=== PATIENT | male | born 1945 | race Caucasian/White ===

== ENCOUNTER 2022-04-16 14:12 | Outpatient (NON) | payer MEDICARE, SELFPAY | END 2022-04-16 14:13 | disposition home or self-care (01) | LOC: ANHLAB 14:12 | PROVIDERS: Referring Provider Nurse Practitioner; Visit Provider Nurse Practitioner | DX: C44.41 Basal cell carcinoma of skin of scalp and neck (principal) | CPT/HCPCS: 88305; 88331 ==

== ENCOUNTER 2022-10-11 01:40 | Inpatient (IN) | payer MEDICARE, SELFPAY ==
[2022-10-11] VITALS (12 sets, daily range): BP systolic 139–182; BP diastolic 57–85; PULSE 69–114; RESP 20–24; TEMP 36.6–37.4; O2SAT 94–99; BMI 32.1
--- NOTE | ~2022-10-11 | XR_ITS ---
XR chest 2V 10/11/2022 09:44 Indication: Sepsis Procedure: 2 view chest Comparison: No prior studies for comparison. Findings: Heart size normal. There is atherosclerosis of the aorta. No pleural effusion or pneumothor ax. There is mild pulmonary vascular congestion. Impression: 1: Mild pulmonary vascular congestion. Reviewed, dictated and finalized at location L. Impression: 1: Mild pulmonary vascular congestion.
--- NOTE | 2022-10-11 01:38 | ADMGEN ---
This patient, Noe Rico, was admitted to IMU Room 231-01. Patient/family oriented to hospital policies and general routines including ID bracelet, bed and alarms, visiting hours, pain management, procedures, bathroom and other care routines, personal items, smoking policy, room service/diet, and visiting hours. Information on how to activate the Rapid Response Team has been discussed. Patient/Family are encouraged to report perceived risks to care and to ask questions if they do not understand what they are told or what they should do.
--- NOTE | 2022-10-11 01:42 | ECG_ITS ---
Measurements Intervals [place] Rate: 79 P: 28 MS: 159 QRS: 52 QRSD: 98 T: 37 QT: 395 QTc: 454 Interpretive Statements SINUS RHYTHM EARLY PRECORDIAL R/S TRANSITION BORDERLINE ECG NO PREVIOUS ECG AVAILABLE FOR COMPARISON Electronically Signed On 10-11-2022 7:44:34 CDT by Sixto Sanders D.O.
--- NOTE | 2022-10-11 01:42 | PM.IMHP ---
H&P: HPI History of Present Illness Date/Time: 10/11/22 01:42 Chief Complaint: chills Narrative: This is a 77-year-old male with past medical history significant for peripheral venous insufficiency, hypertension, GERD, dyslipidemia, benign prostatic hyperplasia, Degenerative joint disease, hip replacement, Colon CA. patient presents as a transfer from an outside facility where he presented with 3 days of generalized malaise, chills. 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 Patient transferred to our facility for urology consult. Patient denies any nausea, vomiting, abdominal pain, pain or burning with urination, diarrhea, cough, sputum production states that his appetite is good. Patient has been in his usual state of health up until this point. Review of Systems Review of Systems: Generalized malaise, chills. Constitutional: Constitutional: Reports chills and Reports malaise Eyes: Eyes: Denies change in vision ENT: Denies dysphagia and Denies odynophagia Cardiovascular: Cardiovascular: Denies chest pain, Reports leg edema and Denies palpitations Respiratory: Respiratory: Denies chest congestion, Denies cough, Denies excessive phlegm production and Denies dyspnea Gastrointestinal: Gastrointestinal: Denies abdominal pain, Denies dyspepsia, Denies heartburn, Denies diarrhea, Denies nausea and Denies vomiting Genitourinary: Genitourinary: Denies dysuria and Denies flank pain Musculoskeletal: Musculoskeletal: Reports myalgias Integumentary/Breasts: Skin/Breast: Denies rash Neurologic: Denies focal weakness and Denies Sensory deficit (Neuro) Psychiatric: Psychiatric: Reports no additional psychiatric complaints and Reports as per HPI Endocrine: Endocrine: Denies cold intolerance, Denies fatigue, Denies flushing, Denies heat intolerance, Denies polyphagia, Denies polydipsia and Denies palpitations Hematologic/Lymphatic: Hematologic/Lymphatic: Reports no additional hematologic/lymphatic complaints and Reports as per HPI Allergic/Immunologic: Allergic/Immunologic: Reports no additional allergic/immunologic complaints and Reports as per HPI PMFSH Family History Family History Mother Cerebrovascular accident Father Cerebrovascular accident Other DVT (deep venous thrombosis) Hypertension Social History Social History Smoking status: Never smoker Second hand tobacco smoke exposure: No Alcohol intake: never Substance use: never Lack of Transportation: No Lack of Food: Never True Current Housing: I Have Housing Concerned About Future Housing: No Difficulty Paying Gas/Electric Bills: No Difficulty Paying for Meds: No Currently Unemployed: No Education: High School Diploma/GED Difficulty w/ Childcare or Family Care: No Spiritual care concerns: Yes Meds Home Medications and Allergies Home Medications Medication Instructions Recorded Confirmed Type furosemide 40 mg tablet 40 mg PO DAILY 10/11/22 10/11/22 History lisinopril 20 mg tablet 20 mg PO DAILY 10/11/22 10/11/22 History omeprazole 20 mg capsule,delayed 20 mg PO DAILY 10/11/22 10/11/22 History release pravastatin 20 mg tablet 20 mg PO DAILY 10/11/22 10/11/22 History tamsulosin 0.4 mg capsule 0.4 mg PO DAILY 10/11/22 10/11/22 History Vital Signs Exam Narrative: patient is laying in bed Const: General: comfortable, no acute distress, well developed, alert, awake and other ( well-appearing) Nutritional Appearance: overweight Orientation/consciousness: patient oriented x3 HENMT: Head: normal to inspection, normocephalic and atraumatic Ears: hearing grossly normal bilaterally Face/Nose/Sinus: normal facial exam Face and sinus: normal facial exam Eyes: General: appearance normal, both eyes and all related structures Pupils: Equal, round and reactive pupils present EOM: EOMs intact bilaterally Neck: Neck: full ROM, no lymphaden
[2022-10-11] MEDS: DEXTROSE 5%/0.45% SOD CHL 1,000 ML 100 ML IV CONT (02:36)
[2022-10-11 03:26] LABS: Basophils Absolute Auto 0.1 K/mm3 (0.0-0.1); Basophils Percent Auto 0.4 % (0.2-1.2); Eosinophils Absolute Auto 0.1 K/mm3 (0-0.3); Eosinophils Percent Auto 0.6 % (0-4.4); Hematocrit 34.6 % (42.0-52.0); Hemoglobin 11.5 g/dL (14.0-18.0); Immature Granulocyte Absolute 0.05 K/mm3 (0.00-0.031); Immature Granulocyte Percent A 0.4 % (0-0.5); Immature Platelet Fraction Pct 5.6 % (0.9-11.2); Lymphocytes Absolute Auto 0.65 K/mm3 (0.9-3.2); Lymphocytes Percent Auto 5.1 % (18.3-44.2); Mean Corpuscular HGB Conc 33.2 g/dl (32-36); Mean Corpuscular Hemoglobin 31.2 pg (26-34); Mean Corpuscular Volume 93.8 fl (80-100); Mean Platelet Volume 10.6 fl (7.4-10.4); Monocytes Absolute Auto 1.1 K/mm3 (0.1-0.6); Monocytes Percent Auto 8.3 % (2.6-8.5); Neutrophils Absolute Auto 10.8 K/mm3 (1.3-6.7); Neutrophils Percent Auto 85.2 % (45.5-73.1); Platelet Count Result 147 k/mm3 (150-375); Red Blood Count 3.69 M/mm3 (4.6-6.20); Red Cell Distribution Width 13.2 % (11.5-14.5); White Blood Count 12.7 K/mm3 (4.5-10.0)
[2022-10-11 03:34] LABS: INR 1.2; Prothrombin Time 16.2 Seconds (11.1-14.7)
[2022-10-11 03:35] LABS: Partial Thromboplastin Time 35.7 SECONDS (22.3-36.8)
[2022-10-11 03:39] LABS: Anion Gap 5 mmol/L (8-16); Blood Urea Nitrogen 16 mg/dL (9-20); Carbon Dioxide 27 mmol/L (22-30); Chloride 104 mmol/L (98-107); Estimated CRCL calculation 70 ml/min; Estimated Glomerular Filt Rate > 60; Glucose 172 mg/dL (65-110); Magnesium 1.8 mg/dL (1.6-2.3); Potassium 3.4 mmol/L (3.4-5.0); Sodium 136 mmol/L (137-145)
--- NOTE | 2022-10-11 07:06 | WPDURCON ---
Assessment and Plan Assessment and plan (1) Emphysematous cystitis: Code(s): N30.80 - Other cystitis without hematuria Status: Acute Assessment and Plan: Ceftriaxone and catheter drainage pending urine culture completion. Urology Consult Note HPI Date Seen: 10/11/22 Requesting Physician: Nicola Jamison MD Primary Care Provider: UNKNOWN,DOCTOR Consult Narrative Narrative: Noe Rico is a 77 year old male, known to Dr. Nichole with a history of BPH and elevated PSA, transferred from [facility] re-presented with a 3 day history of generalized malaise, chills without documented fever. Reportedly, evaluation there revealed an infected appearing urinalysis and CT imaging demonstrated gas in lumen of the bladder and a small amount in the bladder wall. He was transferred here for definitive care. I pass a Ervin catheter be placed to drainage. Patient has multiple cor morbidities as outlined elsewhere. His BPH is managed with daily tamsulosin. Review of Systems Review of Systems: All systems reviewed & are unremarkable except as noted in HPI and below PMFSH Family History Family History Mother Cerebrovascular accident Father Cerebrovascular accident Other DVT (deep venous thrombosis) Hypertension Social History Social History Smoking status: Never smoker Second hand tobacco smoke exposure: No Alcohol intake: never Substance use: never Lack of Transportation: No Lack of Food: Never True Current Housing: I Have Housing Concerned About Future Housing: No Difficulty Paying Gas/Electric Bills: No Difficulty Paying for Meds: No Currently Unemployed: No Education: High School Diploma/GED Difficulty w/ Childcare or Family Care: No Spiritual care concerns: Yes Meds Home Medications and Allergies Home Medications Medication Instructions Recorded Confirmed Type furosemide 40 mg tablet 40 mg PO DAILY 10/11/22 10/11/22 History lisinopril 20 mg tablet 20 mg PO DAILY 10/11/22 10/11/22 History omeprazole 20 mg capsule,delayed 20 mg PO DAILY 10/11/22 10/11/22 History release pravastatin 20 mg tablet 20 mg PO DAILY 10/11/22 10/11/22 History tamsulosin 0.4 mg capsule 0.4 mg PO DAILY 10/11/22 10/11/22 History Allergies Allergy/AdvReac Type Severity Reaction Status Date / Time No Known Allergies Allergy Verified 10/11/22 02:45 Vital Signs Vital Signs - 24 hr 10/11/22 00:57 10/11/22 01:30 10/11/22 04:00 Temperature 98.3 F Pulse Rate 82 85 76 Respiratory Rate 20 Blood Pressure 147/79 H Pulse Oximetry 99 Oxygen Delivery 10/11/22 04:00 10/11/22 04:00 Temperature 97.8 F Pulse Rate 76 69 Respiratory Rate 20 Blood Pressure 153/71 H Pulse Oximetry 98 Oxygen Delivery Room Air Exam Const: General: no acute distress Resp: Effort & Inspection: normal respiratory effort GI: Inspection: non-distended GI Palp: No abdominal tenderness and No Guarding due to palpation present (GI) Auscultation: normal bowel sounds Urinary Catheter: Urinary Catheter: patent and draining and urine clear Results Labs 10/11/22 03:18 10/11/22 03:18 Labs: Short CBC 10/11/22 Range/Units 03:18 WBC 12.7 H (4.5-10.0) K/mm3 Hgb 11.5 L (14.0-18.0) g/dL Hct 34.6 L (42.0-52.0) % Plt Count 147 L (150-375) k/mm3 BMP 10/11/22 03:18 Sodium 136 L Potassium 3.4 Chloride 104 Carbon Dioxide 27 BUN 16 Creatinine 1.10 Glucose 172 H Calcium 8.0 L
[2022-10-11] MEDS: ENOXAPARIN 40 MG/0.4 ML SYRINGE SUB-Q (09:54)
[2022-10-11] MEDS: PRAVASTATIN SODIUM 20 MG TABLET PO (09:54)
[2022-10-11] MEDS: lisinopriL 20 MG TABLET PO (09:54)
[2022-10-11] MEDS: TAMSULOSIN HCL 0.4 MG CAPSULE PO (09:54)
[2022-10-11] MEDS: PANTOPRAZOLE 40 MG TABLET PO (09:54)
[2022-10-11] MEDS: PIPERACILLN/TAZ 3.375GM/NS50ML 3.375 GM/50 ML BAG IVPB ×3 (14:10→23:34)
--- NOTE | 2022-10-11 15:30 | PM.IMPN ---
Progress Note: A&P Assessment and Plan (1) Sepsis: Code(s): A41.9 - Sepsis, unspecified organism Status: Acute Assessment and Plan: suspected Related to UTI. follow culture (2) Emphysematous cystitis: Code(s): N30.80 - Other cystitis without hematuria Status: Acute Assessment and Plan: CT scan of the abdomen pelvis done in hospital. Continue Rocephin. Follow urine culture and blood culture from [facility] (3) Hypertension: Code(s): I10 - Essential (primary) hypertension Status: Acute Assessment and Plan: restart home medication (4) Peripheral venous insufficiency: Code(s): I87.2 - Venous insufficiency (chronic) (peripheral) Status: Acute Assessment and Plan: compression stockings Subjective Date/time seen: 10/11/22 15:30 Interval history: Reviewed. Denies any complaints. Has some chills and rider. No abdominal pain no urinary symptoms. UA was positive. Records reviewed from the [facility]. Review of Systems Review of Systems: All systems reviewed & are unremarkable except as noted in HPI and below Exam Narrative: GENERAL: The patient is well developed, not in acute distress HEENT: Nonicteric sclerae, PERRLA, EOMI. Oropharynx clear. Moist mucous membranes. Conjunctivae appear well perfused. CHEST: Chest wall is nontender. HEART: Regular rate and rhythm without murmur, rubs, or gallops LUNGS: Clear to auscultation bilaterally. no respiratory distress ABDOMEN: Soft, positive bowel sounds, non-tender, no organomegaly. SKIN: No rash, no excessive bruising, petechiae, or purpura. NEUROLOGIC: Cranial nerves II-XII intact, alert and oriented x 3, no gross motor deficits EXTREMITIES: no edema, cyanosis or clubbing Objective Data Vital Signs Vital Signs: Vital Signs - 24 hr 10/11/22 00:57 10/11/22 01:30 10/11/22 04:00 Temperature 98.3 F Pulse Rate 82 85 76 Respiratory Rate 20 Blood Pressure 147/79 H Pulse Oximetry 99 Oxygen Delivery 10/11/22 04:00 10/11/22 04:00 10/11/22 08:00 Temperature 97.8 F 98.8 F Pulse Rate 76 69 95 Respiratory Rate 20 20 Blood Pressure 153/71 H 182/85 H Pulse Oximetry 98 98 Oxygen Delivery Room Air 10/11/22 08:30 10/11/22 11:53 Temperature 99 F Pulse Rate 92 Respiratory Rate 20 Blood Pressure 177/75 H 174/70 H Pulse Oximetry 94 Oxygen Delivery Intake/Output Intake/Output: Intake & Output 10/08/22 10/09/22 10/10/22 10/11/22 23:59 23:59 23:59 23:59 Output Total 1000 Balance -1000 Meds/Results Medications: Active Medications Generic Name Dose Route Start Last Admin Trade Name Freq PRN Reason Stop Dose Admin Al Hydrox/Mg Hydrox/Simethicone 30 ml 10/11/22 01:40 Mag Hydrox/Al Hydrox/Simeth 30 Ml Udc PO QID PRN Dyspepsia Enoxaparin Sodium 40 mg 10/11/22 09:00 10/11/22 09:54 Enoxaparin 40 Mg/0.4 Ml Syringe SUB-Q 40 mg DAILY PEPE Administration Dextrose/Sodium Chloride 1,000 mls @ 100 mls/hr 10/11/22 01:40 10/11/22 02:36 Dextrose 5% Sodium Chloride 0.45% IV CONT 100 mls/hr .Q10H PEPE Administration Piperacillin/Tazobactam/Dextrose 3.375 gm in 50 mls @ 100 mls/hr 10/11/22 13:30 10/11/22 14:10 Zosyn 3.375 Gm/Ns 50 Ml IVPB 100 mls/hr Q6HR PEPE Administration Lisinopril 20 mg 10/11/22 09:00 10/11/22 09:54 Lisinopril 20 Mg Tablet PO 20 mg DAILY PEPE Administration Magnesium Hydroxide 30 ml 10/11/22 01:40 Magnesium Hydroxide Susp 30 Ml Udc PO DAILY PRN Constipation Morphine Sulfate 2 mg 10/11/22 01:40 Morphine Sulfate (*Crx) 2 Mg/Ml Inj IV PUSH Q4H PRN Pain Rated 7-10 Ondansetron HCl 4 mg 10/11/22 01:40 Ondansetron Inj 4 Mg/2 Ml Vial IV PUSH Q6H PRN Nausea And Vomiting Pantoprazole Sodium 40 mg 10/11/22 09:00 10/11/22 09:54 Pantoprazole 40 Mg Tablet PO 40 mg QAM PEPE Administration Pravastatin Sodium 20 mg
[2022-10-11] MEDS: ACETAMINOPHEN 325 MG TABLET 650 MG PO (21:19)
--- NOTE | 2022-10-11 21:48 | PC.NURSE ---
This patient, Noe Rico, was transferred to [ 349] on 10/11/22 at 2148. Personal belongings sent with patient. Report given to [Maty ]. Appropriate documentation sent with patient.
[2022-10-11 21:50] LABS: Appearance Urine Clear (Clear); Bacteria Urine None Seen /hpf; Bilirubin Urine Negative (Negative); Blood Urine 2+ (Negative); Color Urine Yellow (Yellow); Glucose Urine UA Negative (Negative); Ketones Urine Negative (Negative); Leukocyte Esterase Ur 2+ LEU/UL (NEGATIVE); Nitrate Urine Negative (Negative); Protein Urine 2+ mg/dL (Negative); RBC Urine 21-50 /hpf (0-2); Squamous Epithelial Cell Urine None seen /hpf (Few); WBC Urine 51-100 /hpf (0-3)
[2022-10-11 21:54] LABS: Add Urine Microscopic? YES
--- NOTE | 2022-10-11 22:14 | PC.NURSE ---
Transferred from IMU per W/C Oriented to room .
[2022-10-12] VITALS: BP 152/66; PULSE 68; RESP 16; TEMP 36.9; O2SAT 98
[2022-10-12 05:22] VITALS: BP 163/81; PULSE 86; RESP 18; TEMP 36.6; O2SAT 98
[2022-10-12] MEDS: PIPERACILLN/TAZ 3.375GM/NS50ML 3.375 GM/50 ML BAG IVPB ×3 (05:40→18:13)
[2022-10-12 05:51] LABS: Basophils Percent Auto 0.4 % (0.2-1.2); Eosinophils Absolute Auto 0.1 K/mm3 (0-0.3); Eosinophils Percent Auto 0.6 % (0-4.4); Hematocrit 33.4 % (42.0-52.0); Hemoglobin 11.2 g/dL (14.0-18.0); Immature Granulocyte Absolute 0.05 K/mm3 (0.00-0.031); Immature Granulocyte Percent A 0.6 % (0-0.5); Immature Platelet Fraction Pct 5.7 % (0.9-11.2); Lymphocytes Absolute Auto 0.77 K/mm3 (0.9-3.2); Lymphocytes Percent Auto 9.8 % (18.3-44.2); Mean Corpuscular HGB Conc 33.5 g/dl (32-36); Mean Corpuscular Hemoglobin 31.6 pg (26-34); Mean Corpuscular Volume 94.4 fl (80-100); Mean Platelet Volume 11.2 fl (7.4-10.4); Monocytes Absolute Auto 1.4 K/mm3 (0.1-0.6); Monocytes Percent Auto 18.3 % (2.6-8.5); Neutrophils Absolute Auto 5.5 K/mm3 (1.3-6.7); Neutrophils Percent Auto 70.3 % (45.5-73.1); Platelet Count Result 121 k/mm3 (150-375); Red Blood Count 3.54 M/mm3 (4.6-6.20); Red Cell Distribution Width 13.1 % (11.5-14.5); White Blood Count 7.9 K/mm3 (4.5-10.0)
[2022-10-12 06:03] LABS: Alanine Aminotransferase 21 U/L (6-50); Albumin Level 3.1 g/dL (3.5-5.1); Alkaline Phosphatase 71 U/L (38-126); Anion Gap 6 mmol/L (8-16); Aspartate Amino Transferase 28 U/L (17-59); Bilirubin,Total 1.9 mg/dL (0.2-1.3); Blood Urea Nitrogen 16 mg/dL (9-20); Calcium 8.1 mg/dL (8.4-10.2); Carbon Dioxide 27 mmol/L (22-30); Chloride 103 mmol/L (98-107); Estimated CRCL calculation 70 ml/min; Estimated Glomerular Filt Rate > 60; Glucose 173 mg/dL (65-110); Magnesium 1.9 mg/dL (1.6-2.3); Potassium 3.4 mmol/L (3.4-5.0); Sodium 136 mmol/L (137-145)
[2022-10-12] MEDS: TAMSULOSIN HCL 0.4 MG CAPSULE PO (08:32)
[2022-10-12] MEDS: lisinopriL 20 MG TABLET PO (08:32)
[2022-10-12] MEDS: PANTOPRAZOLE 40 MG TABLET PO (08:32)
[2022-10-12] MEDS: PRAVASTATIN SODIUM 20 MG TABLET PO (08:32)
[2022-10-12] MEDS: ENOXAPARIN 40 MG/0.4 ML SYRINGE SUB-Q (08:32)
--- NOTE | 2022-10-12 08:32 | WPDUROPN2 ---
Progress Note: A&P Assessment and Plan (1) Emphysematous cystitis: Code(s): N30.80 - Other cystitis without hematuria Status: Acute Assessment and Plan: Pt. responding nicely to abx. - likely has a very mild case of cystitis. He's very anxious for discharge today so he can go to grandson's graduation tomorrow. this may be a challenge as urine culture may not be back today. I'd be comfortable with disharge this afternoon on abx. x14 days. If culture not available I suggest a quinolone (Cipro or Levaquin) for better tissue penetration Subjective Subjective Date/Time Seen: 10/12/22 08:32 Interval history: Patient responding nicely to therapy, less chills and leukocytosis improved overnight Review of Systems Cardiovascular: Cardiovascular: Denies chest pain, Denies lightheadedness, Denies palpitations and Denies dyspnea Respiratory: Respiratory: Denies dyspnea Gastrointestinal: Gastrointestinal: Denies diarrhea, Denies nausea and Denies vomiting Genitourinary: Genitourinary: Denies hematuria and Denies dysuria Endocrine: Endocrine: Denies palpitations Objective Data Vital Signs Vital Signs: Vital Signs - 24 hr 10/11/22 11:53 10/11/22 12:00 10/11/22 16:00 Temperature 99 F Pulse Rate 92 Respiratory Rate 20 Blood Pressure 174/70 H Pulse Oximetry 94 Oxygen Delivery Room Air Room Air 10/11/22 12:00 10/11/22 16:00 10/11/22 10:00 Temperature Pulse Rate 93 114 H 105 H Respiratory Rate Blood Pressure Pulse Oximetry Oxygen Delivery 10/11/22 14:00 10/11/22 16:00 10/11/22 18:00 Temperature 99.4 F Pulse Rate 99 98 91 Respiratory Rate 24 H Blood Pressure 139/62 Pulse Oximetry 96 Oxygen Delivery 10/11/22 20:00 10/11/22 20:00 10/12/22 00:00 Temperature 99.4 F 98.4 F Pulse Rate 84 68 Respiratory Rate 20 16 Blood Pressure 141/57 H 152/66 H Pulse Oximetry 97 98 Oxygen Delivery Room Air 10/12/22 05:22 Temperature 97.9 F Pulse Rate 86 Respiratory Rate 18 Blood Pressure 163/81 H Pulse Oximetry 98 Oxygen Delivery Intake/Output Intake/Output: Intake & Output 05/1610/10/22 10/11/22 10/12/22 23:59 23:59 23:59 23:59 Intake Total 1860 250 Output Total 1999 1050 Balance -140 -800 Meds/Results Medications: Active Medications Generic Name Dose Route Start Last Admin Trade Name Freq PRN Reason Stop Dose Admin Acetaminophen 650 mg 10/11/22 21:02 10/11/22 21:19 Acetaminophen 325 Mg Tablet PO 650 mg Q6H PRN Administration Mild Pain (1-3) or Fever Al Hydrox/Mg Hydrox/Simethicone 30 ml 10/11/22 01:40 Mag Hydrox/Al Hydrox/Simeth 30 Ml Udc PO QID PRN Dyspepsia Enoxaparin Sodium 40 mg 10/11/22 09:00 10/12/22 08:32 Enoxaparin 40 Mg/0.4 Ml Syringe SUB-Q 40 mg DAILY PEPE Administration Piperacillin/Tazobactam/Dextrose 3.375 gm in 50 mls @ 100 mls/hr 10/11/22 13:30 10/12/22 06:10 Zosyn 3.375 Gm/Ns 50 Ml IVPB Infused Q6HR PEPE Infusion Lisinopril 20 mg 10/11/22 09:00 10/12/22 08:32 Lisinopril 20 Mg Tablet PO 20 mg DAILY PEPE Administration Magnesium Hydroxide 30 ml 10/11/22 01:40 Magnesium Hydroxide Susp 30 Ml Udc PO DAILY PRN Constipation Morphine Sulfate 2 mg 10/11/22 01:40 Morphine Sulfate (*Crx) 2 Mg/Ml Inj IV PUSH Q4H PRN Pain Rated 7-10 Ondansetron HCl 4 mg 10/11/22 01:40 Ondansetron Inj 4 Mg/2 Ml Vial IV PUSH Q6H PRN Nausea And Vomiting Pantoprazole Sodium 40 mg 10/11/22 09:00 10/12/22 08:32 Pantoprazole 40 Mg Tablet PO 40 mg QAM PEPE Administration Pravastatin Sodium 20 mg 10/11/22 09:00 10/12/22 08:32 Pravastatin Sodium 20 Mg Tablet PO 20 mg DAILY PEPE Administration Tamsulosin HCl 0.4 mg 10/11/22 09:00 10/12/22 08:32 Tamsulosin Hcl 0.4 Mg Capsule PO 0.4 mg DAILY PEPE Administration Radiology Results: ITS Impressions Chest X-Ray 10/11/22 09:54 Impress
--- NOTE | 2022-10-12 11:47 | PM.IMPN ---
Progress Note: A&P Assessment and Plan (1) Sepsis: Code(s): A41.9 - Sepsis, unspecified organism Status: Acute Assessment and Plan: suspected Related to UTI. follow culture (2) Emphysematous cystitis: Code(s): N30.80 - Other cystitis without hematuria Status: Acute Assessment and Plan: CT scan of the abdomen pelvis done in hospital. Continue Rocephin. Follow urine culture and blood culture from outlying hospital (3) Hypertension: Code(s): I10 - Essential (primary) hypertension Status: Acute Assessment and Plan: restart home medication (4) Peripheral venous insufficiency: Code(s): I87.2 - Venous insufficiency (chronic) (peripheral) Status: Acute Assessment and Plan: compression stockings Subjective Date/time seen: 10/12/22 11:47 Interval history: Feeling okay Exam Narrative: GENERAL: The patient is well developed, not in acute distress HEENT: Nonicteric sclerae, PERRLA, EOMI. Oropharynx clear. Moist mucous membranes. Conjunctivae appear well perfused. CHEST: Chest wall is nontender. HEART: Regular rate and rhythm without murmur, rubs, or gallops LUNGS: Clear to auscultation bilaterally. no respiratory distress ABDOMEN: Soft, positive bowel sounds, non-tender, no organomegaly. SKIN: No rash, no excessive bruising, petechiae, or purpura. NEUROLOGIC: Cranial nerves II-XII intact, alert and oriented x 3, no gross motor deficits EXTREMITIES: no edema, cyanosis or clubbing Objective Data Vital Signs Vital Signs: Vital Signs - 24 hr 10/11/22 11:53 10/11/22 12:00 10/11/22 16:00 Temperature 99 F Pulse Rate 92 Respiratory Rate 20 Blood Pressure 174/70 H Pulse Oximetry 94 Oxygen Delivery Room Air Room Air 10/11/22 12:00 10/11/22 16:00 10/11/22 14:00 Temperature Pulse Rate 93 114 H 99 Respiratory Rate Blood Pressure Pulse Oximetry Oxygen Delivery 10/11/22 16:00 10/11/22 18:00 10/11/22 20:00 Temperature 99.4 F 99.4 F Pulse Rate 98 91 84 Respiratory Rate 24 H 20 Blood Pressure 139/62 141/57 H Pulse Oximetry 96 97 Oxygen Delivery 10/11/22 20:00 10/12/22 00:00 10/12/22 05:22 Temperature 98.4 F 97.9 F Pulse Rate 68 86 Respiratory Rate 16 18 Blood Pressure 152/66 H 163/81 H Pulse Oximetry 98 98 Oxygen Delivery Room Air Intake/Output Intake/Output: Intake & Output 10/09/22 10/10/22 10/11/22 10/12/22 23:59 23:59 23:59 23:59 Intake Total 1860 610 Output Total 1999 1050 Balance -140 -440 Meds/Results Medications: Active Medications Generic Name Dose Route Start Last Admin Trade Name Freq PRN Reason Stop Dose Admin Acetaminophen 650 mg 10/11/22 21:02 10/11/22 21:19 Acetaminophen 325 Mg Tablet PO 650 mg Q6H PRN Administration Mild Pain (1-3) or Fever Al Hydrox/Mg Hydrox/Simethicone 30 ml 10/11/22 01:40 Mag Hydrox/Al Hydrox/Simeth 30 Ml Udc PO QID PRN Dyspepsia Enoxaparin Sodium 40 mg 10/11/22 09:00 10/12/22 08:32 Enoxaparin 40 Mg/0.4 Ml Syringe SUB-Q 40 mg DAILY PEPE Administration Piperacillin/Tazobactam/Dextrose 3.375 gm in 50 mls @ 100 mls/hr 10/11/22 13:30 10/12/22 06:10 Zosyn 3.375 Gm/Ns 50 Ml IVPB Infused Q6HR PEPE Infusion Lisinopril 20 mg 10/11/22 09:00 10/12/22 08:32 Lisinopril 20 Mg Tablet PO 20 mg DAILY PEPE Administration Magnesium Hydroxide 30 ml 10/11/22 01:40 Magnesium Hydroxide Susp 30 Ml Udc PO DAILY PRN Constipation Morphine Sulfate 2 mg 10/11/22 01:40 Morphine Sulfate (*Crx) 2 Mg/Ml Inj IV PUSH Q4H PRN Pain Rated 7-10 Ondansetron HCl 4 mg 10/11/22 01:40 Ondansetron Inj 4 Mg/2 Ml Vial IV PUSH Q6H PRN Nausea And Vomiting Pantoprazole Sodium 40 mg 10/11/22 09:00 10/12/22 08:32 Pantoprazole 40 Mg Tablet PO 40 mg QAM PEPE Administration Pravastatin Sodium 20 mg 10/11/22 09:00 10/12/22 08:32 Pravas
[2022-10-12 16:51] VITALS: BP 165/69; PULSE 95; RESP 18; TEMP 38.4; O2SAT 98
[2022-10-12 18:19] VITALS: TEMP 38.4
[2022-10-12] MEDS: ACETAMINOPHEN 325 MG TABLET 650 MG PO (18:19)
[2022-10-12 21:15] VITALS: BP 143/67; PULSE 75; RESP 18; TEMP 37.4; O2SAT 97
[2022-10-13] MEDS: PIPERACILLN/TAZ 3.375GM/NS50ML 3.375 GM/50 ML BAG IVPB ×2 (00:38→05:50)
[2022-10-13 05:48] VITALS: BP 163/85; PULSE 87; RESP 18; TEMP 37.7; O2SAT 97
[2022-10-13] MEDS: TAMSULOSIN HCL 0.4 MG CAPSULE PO (08:33)
[2022-10-13] MEDS: lisinopriL 20 MG TABLET PO (08:33)
[2022-10-13] MEDS: PRAVASTATIN SODIUM 20 MG TABLET PO (08:33)
[2022-10-13] MEDS: PANTOPRAZOLE 40 MG TABLET PO (08:33)
[2022-10-13] MEDS: ENOXAPARIN 40 MG/0.4 ML SYRINGE SUB-Q (08:33)
--- NOTE | 2022-10-13 10:25 | PM.DS ---
DS: Admitting Diagnosis Discharge Date October 13, 2022 Admitting Diagnosis UTI DS: Discharge Diagnosis Discharge Diagnosis (1) Sepsis: Code(s): A41.9 - Sepsis, unspecified organism Status: Acute Assessment and Plan: suspected Related to UTI. follow culture (2) Emphysematous cystitis: Code(s): N30.80 - Other cystitis without hematuria Status: Acute Assessment and Plan: CT scan of the abdomen pelvis done in hospital. Continue Rocephin. Follow urine culture and blood culture from outlying hospital (3) Hypertension: Code(s): I10 - Essential (primary) hypertension Status: Acute Assessment and Plan: restart home medication (4) Peripheral venous insufficiency: Code(s): I87.2 - Venous insufficiency (chronic) (peripheral) Status: Acute Assessment and Plan: compression stockings DS: Summary Hospital Course Hospital Course: admitted for UTI, antibiotics on discharge Time Spent with Patient Time attestation: Total time spent providing and/or coordinating discharge services: Exam Narrative: GENERAL: The patient is well developed, not in acute distress HEENT: Nonicteric sclerae, PERRLA, EOMI. Oropharynx clear. Moist mucous membranes. Conjunctivae appear well perfused. CHEST: Chest wall is nontender. HEART: Regular rate and rhythm without murmur, rubs, or gallops LUNGS: Clear to auscultation bilaterally. no respiratory distress ABDOMEN: Soft, positive bowel sounds, non-tender, no organomegaly. SKIN: No rash, no excessive bruising, petechiae, or purpura. NEUROLOGIC: Cranial nerves II-XII intact, alert and oriented x 3, no gross motor deficits EXTREMITIES: no edema, cyanosis or clubbing Discharge Plan Discharge Attending physician on discharge: Viral Damico Consulting providers: Dwain Harman Discharging Clinician: Viral Damico Patient Disposition: Home, Self-Care Activity: as tolerated Diet: as tolerated Patient Instructions: Antibiotic Form Stand Alone Forms: General Discharge Information Follow-up/Referrals: Dwain Harman MD [Physician] - Discharge Medications: New levofloxacin 750 mg tablet 750 mg PO DAILY Qty: 12 0RF Continued furosemide 40 mg tablet 40 mg PO DAILY lisinopril 20 mg tablet 20 mg PO DAILY tamsulosin 0.4 mg capsule 0.4 mg PO DAILY omeprazole 20 mg capsule,delayed release(DR/EC) 20 mg PO DAILY pravastatin 20 mg tablet 20 mg PO DAILY Date of admission: 10/11/22 01:40 Primary Care Provider: UNKNOWN,DOCTOR Admitting Provider: Nicola Jamison V. Attending physician on admission: Nicola Jamison V. Condition: Stable
== END 2022-10-13 11:00 | disposition home or self-care (01) | DRG 872 ==
LOC: ANHIMU 13:27 → ANH3MED 22:01
PROVIDERS: Internal Medicine; Admitting Provider Internal Medicine; Visit Provider Chiropractor
DX: A41.9 Sepsis, unspecified organism (principal); N30.80 Other cystitis without hematuria; E78.5 Hyperlipidemia, unspecified; I87.2 Venous insufficiency (chronic) (peripheral); I10 Essential (primary) hypertension; K21.9 Gastro-esophageal reflux disease without esophagitis; N40.0 Benign prostatic hyperplasia without lower urinary tract symptoms; Z85.038 Personal history of other malignant neoplasm of large intestine
CPT/HCPCS: 36415; 71046; 80048; 80053; 81001; 83735; 84100; 85025; 85055; 85610; 85730; 87086; 93005; A9270; J1650; J2543

== ENCOUNTER 2022-11-14 19:45 | Emergency (ER) | payer MEDICARE, SELFPAY ==
[2022-11-14 19:51] VITALS: BP 189/94; PULSE 99; RESP 18; TEMP 36.6; O2SAT 98
--- NOTE | 2022-11-14 21:59 | ED.MALEGU ---
HPI - Male Genitourinary General Chief complaint: Urogenital-Male <LUIS Akins Last Filed: 11/15/22 01:13> Stated complaint: ryan blockage <LUIS Akins Last Filed: 11/15/22 01:13> Time Seen by Provider: 11/14/22 20:25 <LUIS Akins Last Filed: 11/15/22 01:13> Source: patient <LUIS Akins Last Filed: 11/15/22 01:13> Mode of arrival: ambulatory <LUIS Akins Last Filed: 11/15/22 01:13> Limitations: no limitations <LUIS Akins Last Filed: 11/15/22 01:13> History of Present Illness HPI Narrative: Patient is a 77-year-old male who presents to the ED with report of blocked Ryan catheter. 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 He has since had the catheter removed and has been doing fine the last few weeks. He underwent urodynamic testing with Dr. Nichole today in office, at which time he was found to be retaining urine. A Ryan catheter was replaced. Patient states since the appointment, he has not passed any urine into the catheter bag. He feels the urge to go, but nothing is passing through. He is supposed to have the Ryan catheter remain in place until his appointment again next week. Reports lower abdominal pressure, denies nausea, vomiting, fevers. <LUIS Akins Last Filed: 11/15/22 01:13> Related Data Home medications: Home Medications Medication Instructions Recorded Confirmed furosemide 40 mg tablet 40 mg PO DAILY 10/11/22 10/11/22 lisinopril 20 mg tablet 20 mg PO DAILY 10/11/22 10/11/22 omeprazole 20 mg capsule,delayed 20 mg PO DAILY 10/11/22 10/11/22 release pravastatin 20 mg tablet 20 mg PO DAILY 10/11/22 10/11/22 tamsulosin 0.4 mg capsule 0.4 mg PO DAILY 10/11/22 10/11/22 <Gwen Moore PA-C - Last Filed: 11/15/22 01:13> Allergies/Adverse reactions: Allergies Allergy/AdvReac Type Severity Reaction Status Date / Time No Known Allergies Allergy Verified 10/11/22 02:45 <Gwen Moore PA-C - Last Filed: 11/15/22 01:13> Review of Systems Review of Systems: CONSTITUTIONAL: Denies fever, chills, or sweats. GASTROINTESTINAL: See HPI. GENITOURINARY: See HPI. SKIN: Denies rash or itching. MUSCULOSKELETAL: Denies back pain, joint pain, or myalgia. <Gewn Moore PA-C - Last Filed: 11/15/22 01:13> All systems reviewed & are unremarkable except as noted in HPI and below <Gwen Moore PA-C - Last Filed: 11/15/22 01:13> [facility] Family History Family History: Family History Mother Cerebrovascular accident Father Cerebrovascular accident Other DVT (deep venous thrombosis) Hypertension <Gwen Moore PA-C - Last Filed: 11/15/22 01:13> Social History Social History: Social History Smoking status: Never smoker Second hand tobacco smoke exposure: No Alcohol intake: never Substance use: never Lack of Transportation: No Lack of Food: Never True Current Housing: I Have Housing Concerned About Future Housing: No Difficulty Paying Gas/Electric Bills: No Difficulty Paying for Meds: No Currently Unemployed: No Education: High School Diploma/GED Difficulty w/ Childcare or Family Care: No Spiritual care concerns: Yes <Gwen Moore PA-C - Last Filed: 11/15/22 01:13> Exam Narrative: GENERAL: Well appearing, obese with BMI of 32.6, non-toxic, in no acute distress. HEAD: Normocephalic, atraumatic. NECK: Supple. No adenopathy, no masses. RESPIRATORY: Airway patent, respirations nonlabored. Clear to auscultation bilaterally, no rales, rhonchi, wheezing. CARDIOVASCULAR: Regular rate and rhythm without murmurs, rubs, or gallops. Radial p
[2022-11-14 22:41] LABS: Need Manual Microscopic Reviewed; Non Pathogenic Casts 0-2; RBC Urine >100 /hpf (0-2); Squamous Epithelial Cell Urine Few /hpf (Few); WBC Urine 51-100 /hpf
[2022-11-14 22:56] LABS: Appearance Urine Cloudy (Clear); Bilirubin Urine 2+ (Negative); Blood Urine 3+ (Negative); Color Urine Red (Yellow); Glucose Urine UA Trace mg/dL (Negative); Ketones Urine 1+ mg/dL (Negative); Leukocyte Esterase Ur 3+ LEU/UL (Negative); Nitrate Urine Positive (Negative); Protein Urine 3+ mg/dL (Negative); pH Urine 6.5 (5.0-9.0)
[2022-11-14 23:01] LABS: Bacteria Urine 3+ /hpf
[2022-11-14 23:02] LABS: Add Urine Microscopic? YES
[2022-11-14 23:56] LABS: Basophils Percent Auto 0.4 % (0.2-1.2); Eosinophils Absolute Auto 0.3 K/mm3 (0-0.3); Eosinophils Percent Auto 2.6 % (0-4.4); Hematocrit 36.2 % (42.0-52.0); Hemoglobin 11.8 g/dL (14.0-18.0); Immature Granulocyte Absolute 0.04 K/mm3 (0.00-0.031); Immature Granulocyte Percent A 0.4 % (0-0.5); Lymphocytes Percent Auto 12.3 % (18.3-44.2); Mean Corpuscular HGB Conc 32.6 g/dl (32-36); Mean Corpuscular Hemoglobin 30.3 pg (26-34); Mean Corpuscular Volume 93.1 fl (80-100); Mean Platelet Volume 10.7 fl (7.4-10.4); Monocytes Absolute Auto 1.1 K/mm3 (0.1-0.6); Monocytes Percent Auto 11.4 % (2.6-8.5); Neutrophils Absolute Auto 7.1 K/mm3 (1.3-6.7); Neutrophils Percent Auto 72.9 % (45.5-73.1); Platelet Count Result 143 k/mm3 (150-375); Red Blood Count 3.89 M/mm3 (4.6-6.20); Red Cell Distribution Width 14.1 % (11.5-14.5); White Blood Count 9.8 K/mm3 (4.5-10.0)
[2022-11-15 00:06] LABS: Anion Gap 6 mmol/L (8-16); Blood Urea Nitrogen 14 mg/dL (9-20); Calcium 8.4 mg/dL (8.4-10.2); Carbon Dioxide 26 mmol/L (22-30); Chloride 104 mmol/L (98-107); Estimated CRCL calculation 107 ml/min; Estimated Glomerular Filt Rate > 60; Glucose 213 mg/dL (65-110); Potassium 3.7 mmol/L (3.4-5.0); Sodium 136 mmol/L (137-145)
[2022-11-15 00:59] VITALS: BP 160/95; PULSE 79; RESP 16; O2SAT 99
[2022-11-15] MEDS: levoFLOXacin 750 MG TABLET PO (01:28)
== END 2022-11-15 01:30 | disposition home or self-care (01) ==
PROVIDERS: Emergency Provider Physician Assistant; PCP Family Medicine
DX: T83.091A Other mechanical complication of indwelling urethral catheter, initial encounter (principal); N39.0 Urinary tract infection, site not specified; I10 Essential (primary) hypertension; Y84.6 Urinary catheterization as the cause of abnormal reaction of the patient, or of later complication, without mention of misadventure at the time of the procedure
CPT/HCPCS: 36415; 80048; 81001; 85025; 87086; 99283; A9270

== ENCOUNTER 2022-12-18 07:51 | Outpatient (CLI) | payer MEDICARE, SELFPAY ==
[2022-12-18 09:16] LABS: INR 1.1; Partial Thromboplastin Time 27.3 SECONDS (22.3-36.8); Prothrombin Time 14.4 Seconds (11.1-14.7)
== END 2022-12-18 07:52 | disposition home or self-care (01) ==
LOC: ANHSURGERY 07:56
PROVIDERS: PCP Family Medicine; Visit Provider Urology
DX: N40.0 Benign prostatic hyperplasia without lower urinary tract symptoms (principal); Z01.818 Encounter for other preprocedural examination
CPT/HCPCS: 36415; 85610; 85730; 87077; 87086; 87186

== ENCOUNTER 2022-12-25 00:53 | Day surgery (SDC) | payer MEDICARE, SELFPAY ==
[2022-12-11 13:28] VITALS: BMI 33.2
--- NOTE | 2022-12-11 13:37 | PC.NURSE ---
PRE-OP INSTRUCTIONS, PLEASE READ CAREFULLY Report to the Outpatient Waiting Room, entrance under the green pavilion located off [facility], at time _0800_ on date _12/25/22_. Planned Procedure Time: _1000_. PACK A SMALL OVERNIGHT BAG AND LEAVE IN THE CAR Time changes happen often and if your time is changed the preop area will call you the afternoon before. - You and your visitor will be asked to self-screen and do not enter if you have any COVID symptoms. - A mask is optional within the hospital at this time. -VISITING HOURS 8AM-8PM Patients may have clear liquids (water, carbonated beverages, clear teas, apple juice) until 3 hours prior to surgery (0700 AM) with a maximum of 20 ounces. - No food from midnight until time of surgery Take the following medications with a SIP of water the morning of surgery: _NONE_ DO NOT STOP ANY OF YOUR OTHER PRESCRIPTION MEDICATIONS PRIOR TO SURGERY ?EXCEPT THE FOLLOWING Medications to discontinue per physician __NONE____, Date to take last dose____ Please no make-up, nail maltese, hairspray, perfume, deodorant, or body powder the day of surgery. No jewelry (including any body piercings) or valuables the day of surgery, leave them at home. Please take a shower or bath the night before, or the morning of, surgery with an antibacterial soap. Wear comfortable, loose fitting clothing. - Jewelry must be removed prior to entering the operating room. Rings and piercings that are not removed may be cut off. - The hospital will not accept responsibility for valuables. - Please leave all valuables, including medications, at home the day of surgery. If you are going home after surgery, a licensed rolloff truck driver must drive you home. - NO public transportation without another adult if you receive anesthesia. - We recommend that an adult stay with you for 24 hours following discharge. - We also recommend that you do not drive, make important decision, drink alcoholic beverages, or take any drugs that were not prescribed by your health care provider for at least 24 hours after your discharge time. Follow any additional instructions given to you from your surgeon. If you or anyone in your household have experienced Covid symptoms in the past week, please notify your surgeon or the nurse liaison at the phone number below for possible testing. Telephone instructions given to _PATIENT_and asked if any additional questions and then verbalized understanding. Patient advised to call surgeon office or pre surgery nurse liaison [phone] if any additional questions.
--- NOTE | 2022-12-24 11:38 | WPDANESEPPF ---
Anes - Initial Pre Proc Eval Procedure: Operation Date: 12/25/22 10:00 Proposed Procedures p Trans Urethral Resection Prostate - Hardy Nichole MD Date/Time: 12/24/22 11:38 Surgeon: Hardy Nichole MD Pre Op Diagnosis: BPH Patient Data Age: 77 Gender: M Height: 1.91 m Weight: 120.45 kg Allergies Allergy/AdvReac Type Severity Reaction Status Date / Time No Known Allergies Allergy Verified 12/25/22 08:26 Home Medications Medication Instructions Recorded Confirmed Type lisinopril 20 mg tablet 20 mg PO DAILY 10/11/22 12/25/22 History omeprazole 20 mg capsule,delayed 20 mg PO DAILY 10/11/22 12/25/22 History release pravastatin 20 mg tablet 20 mg PO DAILY 10/11/22 12/25/22 History ascorbic acid (vitamin C) 250 mg 250 mg PO BID 12/25/22 12/25/22 History tablet (Vitamin C) cholecalciferol (vitamin D3) 50 50 mcg PO BID 12/25/22 12/25/22 History mcg (2,000 unit) capsule (Vitamin D3) finasteride 5 mg tablet 5 mg PO DAILY 12/25/22 12/25/22 History multivitamin 1 tab-cap PO DAILY 12/25/22 12/25/22 History nitrofurantoin 1 cap PO BID 12/25/22 12/25/22 History monohydrate/macrocrystals 100 mg capsule potassium 99 mg tablet 99 mg PO DAILY 12/25/22 12/25/22 History tamsulosin 0.4 mg PO DAILY 12/25/22 12/25/22 History Patient hx anesthesia problems: none Family hx anesthesia problems: none Results Review: All pre-operative results and documents have been reviewed as part of the pre-operative evaluation. [facility] Past Medical History Medical History (Updated 12/24/22 @ 11:40 by Jordy Mace DO) Colon cancer Diabetes type 2, controlled diet controlled Hyperlipidemia Hypertension SUNITHA (obstructive sleep apnea) Family History Family History Mother Cerebrovascular accident Father Cerebrovascular accident Other DVT (deep venous thrombosis) Hypertension Social History Social History Smoking status: Never smoker Second hand tobacco smoke exposure: No Alcohol intake: never Substance use: never Substance use type: does not use Lack of Transportation: No Lack of Food: Never True Current Housing: I Have Housing Concerned About Future Housing: No Difficulty Paying Gas/Electric Bills: No Difficulty Paying for Meds: No Currently Unemployed: No Education: High School Diploma/GED Difficulty w/ Childcare or Family Care: No Living arrangements: with family Spiritual care concerns: No Anes - Eval Final PreProcedure Day of Procedure 12/24/22 11:38 Patient weight: obese Heart: regular rate and rhythm Lungs: clear to auscultation Airway: Mallampati scale class II Neurological: alert and oriented Last oral intake: >/= 8 hours ASA classification: III Emergent: no Anesthetic plan: proceed Anesthesia type and monitoring: general LMA and standard monitoring Results Review: All pre-operative results and documents have been reviewed as part of the pre-operative evaluation. Informed Consent: The patient's anesthetic plan and its attendant risks and benefits were discussed with the patient/family/POA. Questions were solicited and answers provided to the satisfaction of the patient/family/POA.
[2022-12-25] VITALS (14 sets, daily range): BP systolic 120–195; BP diastolic 70–87; PULSE 62–84; RESP 12–18; TEMP 35.1–36.6; O2SAT 92–100
--- NOTE | 2022-12-25 08:09 | WPDHPUPDATE1 ---
History and Physical Update Update Date/Time: 12/25/22 08:09 History and Physical has been reviewed, including an updated exam of the patient. There are NO changes in the patient's condition. Risks, benefits, and alternatives have been discussed and questions answered. Patient agrees to proceed with procedure. Proceed with TURP
[2022-12-25] MEDS: LACTATED RINGERS 1,000 ML 30 ML IV CONT ×2 (08:45→11:24)
[2022-12-25 08:48] LABS: Glucose Point of Care 144 mg/dl (65-105)
[2022-12-25] MEDS: ceFAZolin 3 GM/D5W 100 ML 100 ML IVPB (09:39)
[2022-12-25] MEDS: LIDOCAINE HCL 2% GEL UROJET 10 ML PKG MUCOUS MEM (10:54)
--- NOTE | 2022-12-25 10:58 | P.OP_ITS ---
Procedure Note - Detailed Date of Procedure 12/25/22 Pre-op Diagnosis BPH, urinary retention Post-op Diagnosis Same Procedure Performed Transurethral resection of prostate Surgeon Hardy Nichole MD Anesthesia General Description of Procedure Patient is taken the operative suite correctly identified. Once anesthesia was obtained was placed in dorsal lithotomy position and prepped draped usual sterile fashion. Twenty-seven Lithuanian resectoscope sheath is placed in the bladder. There were no tumors noted. Both ureteral orifices were visualized at all times. He has an obstructing prostate with median lobe. We went ahead and resected from the bladder neck at the 5:00 a.m. and 7 o'clock position down to the verumontanum. This was carried down to the bladder neck area. Lateral lobes were then taken down in a similar fashion from 12:00 p.m. to the vera. Hemostasis was achieved using electrocautery. All chips were removed. There appeared to be fairly good hemostasis at termination procedure. Bilateral ureteral orifices were visualized at all times. The sphincter was spared. 2% viscous lidocaine was inserted into the urethra. Twenty-four Lithuanian [address] was placed with 25 cc of saline in the balloon. This was connected to continuous bladder irrigation and placed on slight traction. He was taken recovery stable condition. This completes the patient on this patient. Please send a copy of this to my office Estimated Blood Loss 100 Drains Yes Packing No Pathology Yes Complications No immediate complications Condition Stable Disposition PACU
[2022-12-25 11:53] LABS: Glucose Point of Care 173 mg/dl (65-105)
--- NOTE | 2022-12-25 12:40 | PC.NURSE ---
This patient, Noe Rico, was admitted to [facility] Surg Room 320-01. Patient/family oriented to hospital policies and general routines including ID bracelet, bed and alarms, visiting hours, pain management, procedures, bathroom and other care routines, personal items, smoking policy, room service/diet, and visiting hours. Report received from Lisa FLAHERTY. Information on how to activate the Rapid Response Team has been discussed. Patient/Family are encouraged to report perceived risks to care and to ask questions if they do not understand what they are told or what they should do.
[2022-12-25] MEDS: HYOSCYAMINE SULFATE 0.125 MG TABLET SUBLINGUAL (17:39)
[2022-12-25] MEDS: ceFAZolin 1 GM/NS 50 ML 1 GM/50 ML BAG IVPB (17:39)
[2022-12-25] MEDS: DOCUSATE SODIUM 100 MG CAPSULE PO (18:10)
[2022-12-25] MEDS: PRAVASTATIN SODIUM 20 MG TABLET PO (20:25)
[2022-12-26] MEDS: ceFAZolin 1 GM/NS 50 ML 1 GM/50 ML BAG IVPB (00:21)
[2022-12-26 02:19] VITALS: BP 145/59; PULSE 78; RESP 18; TEMP 36.9; O2SAT 99
[2022-12-26 06:19] VITALS: BP 167/82; PULSE 77; RESP 18; TEMP 37.2; O2SAT 98
[2022-12-26 07:01] LABS: Hematocrit 35.7 % (42.0-52.0); Hemoglobin 11.5 g/dL (14.0-18.0)
[2022-12-26 07:13] LABS: Anion Gap 3 mmol/L (8-16); Blood Urea Nitrogen 14 mg/dL (9-20); Calcium 8.3 mg/dL (8.4-10.2); Carbon Dioxide 25 mmol/L (22-30); Chloride 107 mmol/L (98-107); Estimated CRCL calculation 85 ml/min; Estimated Glomerular Filt Rate > 60; Glucose 158 mg/dL (65-110); Sodium 135 mmol/L (137-145)
--- NOTE | 2022-12-26 09:29 | WPDANESPN ---
Anes - Prog Note Post-Op Date/Time: 12/26/22 09:29 Cardiovascular status: normal Respiratory status: normal Airway patency: baseline Mental status: baseline Post-Op hydration status: normal Vital Signs: Last Vital Signs Temp 37.2 C 12/26/22 06:19 Pulse 77 12/26/22 06:19 Resp 18 12/26/22 06:19 BP 167/82 H 12/26/22 06:19 Pulse Ox 98 12/26/22 06:19 O2 Del Method Room Air 12/25/22 20:00 O2 Flow Rate 6 12/25/22 11:30 Pain Score (VAS): 0 I/O: Intake & Output 12/25/22 12/26/22 12/26/22 23:59 07:59 15:59 Intake Total 990 694 480 Output Total 275 950 Balance 715 -256 480 Laboratory Tests 12/26/22 06:45 12/26/22 06:45 12/25/22 12/26/22 11:51 06:45 Hgb 11.5 L Hct 35.7 L Sodium 135 L Potassium 4.0 Chloride 107 Carbon Dioxide 25 Anion Gap 3 L BUN 14 Creatinine 0.90 Estim Creat Clear Calc 85 Estimated GFR > 60 Glucose 158 H POC Capillary Glucose 173 H Calcium 8.3 L Post-procedural complaints: none Patient Feedback: Patient satisfied with anesthetic care.
[2022-12-26 10:06] VITALS: BP 108/52; PULSE 91; RESP 20; TEMP 37.3; O2SAT 100
[2022-12-26] MEDS: DOCUSATE SODIUM 100 MG CAPSULE PO (10:09)
[2022-12-26] MEDS: CEPHALEXIN 500 MG CAPSULE PO (10:09)
[2022-12-26] MEDS: lisinopriL 20 MG TABLET PO (10:09)
[2022-12-26] MEDS: POTASSIUM CHLORIDE 20 MEQ ER TABLET PO (10:10)
--- NOTE | 2022-12-26 12:32 | WPDUROPN2 ---
Progress Note: A&P Assessment and Plan (1) BPH (benign prostatic hyperplasia): Code(s): N40.0 - Benign prostatic hyperplasia without lower urinary tract symptoms Status: Acute Assessment and Plan: Ok to discharge home with leg bag to follow up Saturday for ryan removal. Subjective Subjective Date/Time Seen: 12/26/22 12:32 Post Op day: 1 Principal diagnosis: BPH Interval history: POD #1 TURP Patient doing well, he is up in the chair. Urine is light pink off CBI. He is tolerating diet, activity and pain. Review of Systems Cardiovascular: Cardiovascular: Denies chest pain Respiratory: Respiratory: Reports no additional respiratory complaints Gastrointestinal: Gastrointestinal: Denies abdominal pain, Denies nausea and Denies vomiting Genitourinary: Genitourinary: Reports hematuria, Denies dysuria, Denies flank pain, Denies urinary frequency, Denies urinary hesitancy and Denies urinary urgency Exam Const: General: cooperative and comfortable Resp: Effort & Inspection: normal respiratory effort Cardio: Rate: regular rate GI: GI Palp: Yes Soft to palpation and No Tenderness to palpation present (GI) : General: Yes no CVA tenderness Urinary Catheter: Urinary Catheter: patent and draining, urine clear and urine pink Extrem: Right lower extremity: no edema Left lower extremity: no edema Objective Data Vital Signs Vital Signs: Vital Signs - 24 hr 12/25/22 12:34 12/25/22 12:49 12/25/22 13:19 Temperature 95.2 F L 96 F L 96.8 F L Pulse Rate 66 62 64 Respiratory Rate 18 16 16 Blood Pressure 150/81 H 150/83 H 150/81 H Pulse Oximetry 95 97 99 Oxygen Delivery 12/25/22 14:19 12/25/22 12:34 12/25/22 16:02 Temperature 96.9 F L 97.2 F L Pulse Rate 74 65 Respiratory Rate 16 16 Blood Pressure 157/81 H 163/86 H Pulse Oximetry 98 99 Oxygen Delivery Room Air 12/25/22 20:16 12/25/22 20:00 12/26/22 02:19 Temperature 97.5 F L 98.4 F Pulse Rate 84 78 Respiratory Rate 18 18 Blood Pressure 146/75 H 145/59 H Pulse Oximetry 100 99 Oxygen Delivery Room Air 12/26/22 06:19 12/26/22 10:06 Temperature 98.9 F 99.1 F Pulse Rate 77 91 Respiratory Rate 18 20 Blood Pressure 167/82 H 108/52 L Pulse Oximetry 98 100 Oxygen Delivery Intake/Output Intake/Output: Intake & Output 12/23/22 12/24/22 12/25/22 12/26/22 23:59 23:59 23:59 23:59 Intake Total 3090 1174 Output Total 2625 1550 Balance 465 -376 Meds/Results Medications: Active Medications Generic Name Dose Route Start Last Admin Trade Name Freq PRN Reason Stop Dose Admin Hydrocodone Bitart/Acetaminophen 1 tab 12/25/22 12:34 Hydrocodone/Acetaminophen (*Crx) 5-325 Mg Tablet PO Q4H PRN Pain Rated 1-6 Cephalexin HCl 500 mg 12/26/22 09:00 12/26/22 10:09 Cephalexin 500 Mg Capsule PO 500 mg QID PEPE Administration Docusate Sodium 100 mg 12/25/22 17:00 12/26/22 10:09 Docusate Sodium 100 Mg Capsule PO 100 mg BID PEPE Administration Hyoscyamine 0.125 mg 12/25/22 12:34 12/25/22 17:39 Hyoscyamine Sulfate 0.125 Mg Tablet SUBLINGUAL 0.125 mg Q6H PRN Administration Bladder Spasm Lisinopril 20 mg 12/25/22 12:40 12/26/22 10:09 Lisinopril 20 Mg Tablet PO 20 mg DAILY PEPE Administration Morphine Sulfate 2 mg 12/25/22 12:34 Morphine Sulfate (*Crx) 2 Mg/Ml Inj IV PUSH Q2H PRN Pain Rated 7-10 Naloxone HCl 0.1 mg 12/25/22 12:34 Naloxone Hcl 0.4 Mg/Ml Vial IV PUSH Q2M PRN Opiate Reversal Ondansetron HCl 4 mg 12/25/22 12:34 Ondansetron Inj 4 Mg/2 Ml Vial IV PUSH Q12H PRN Nausea And Vomiting Potassium Chloride 20 meq 12/26/22 09:00 12/26/22 10:10 Potassium Chloride 20 Meq Er Tablet PO 01/25/23 08:59 20 meq DAILY PEPE Administration Pravastatin Sodium 20 mg 12/25/22 21:00 12/25/22 20:25 Pravastatin Sodium 20 Mg Tablet PO 20 mg HS PEPE Administration Labs Labs: Laboratory Res
== END 2022-12-26 12:55 | disposition home or self-care (01) ==
LOC: ANHSURGERY 08:00 → ANH3MEDSUR 12:36
PROVIDERS: PCP Family Medicine; Visit Provider Urology
PROC: 0VT08ZZ Resection of Prostate, Via Natural or Artificial Opening Endoscopic (ICD-10-PCS; CPT 52601; principal; 2022-12-25 10:00)
DX: N40.1 Benign prostatic hyperplasia with lower urinary tract symptoms (principal); R33.8 Other retention of urine; I10 Essential (primary) hypertension; E78.5 Hyperlipidemia, unspecified; E11.9 Type 2 diabetes mellitus without complications; G47.33 Obstructive sleep apnea (adult) (pediatric); Z85.038 Personal history of other malignant neoplasm of large intestine; E66.9 Obesity, unspecified; Z68.32 Body mass index [BMI] 32.0-32.9, adult
CPT/HCPCS: 52601; 36415; 80048; 82948; 85014; 85018; 88305; A9270; J0690; J1100; J2405; J2704; J3010; J7120

== ENCOUNTER 2022-12-28 21:48 | Emergency (ER) | payer MEDICARE, SELFPAY ==
--- NOTE | ~2022-12-28 | CT_ITS ---
EXAMINATION: CT abdomen pelvis wo con DATE: 12/28/2022 22:30 INDICATION: Urinary retention status post TURP TECHNIQUE: Computed tomography (CT) of the abdomen and pelvis was performed without intravenous contr ast. The dose-length product (DLP) was 1456.79 mGy-cm. Automated exposure control and iterative recon struction technique were employed. COMPARISON: None FINDINGS: Minimal dependent atelectasis is present in the lung bases. The heart size is normal. There is a sliding hiatal hernia containing fat and a small amount of the stomach. The liver, spleen, panc reas, gallbladder, and adrenal glands are normal. Cysts of the kidneys measure up to 8.2 cm on the le ft. Nonobstructing stones of the right kidney measure up to 2 mm. Nonobstructing stones of the left k idney measure up to 11 mm. No stones are identified in the ureters. The bladder contains a small amou nt of gas and is decompressed by Ervin catheter. There is mild wall thickening of the urinary bladder . No hydronephrosis or hydroureter. There is a small volume of retroperitoneal fluid near the left ur eter of unclear significance. The prostate is enlarged. There are changes of right hemicolectomy. No pathologically enlarged abdominal or pelvic lymph nodes are identified. No free intraperitoneal gas o r evidence of bowel obstruction. Changes of right hip arthroplasty are noted. There is severe lumbar spondylosis. IMPRESSION: 1. Mild wall thickening of the urinary bladder, likely related to recent surgical intervention. 2. Small amount of fluid in the left retroperitoneum. Near the left ureter of unclear significance. 3. Bilateral nephrolithiasis. Reviewed, dictated and finalized at location F. IMPRESSION: 1. Mild wall thickening of the urinary bladder, likely related to recent surgic al intervention. 2. Small amount of fluid in the left retroperitoneum. Near the left ureter of u nclear significance. 3. Bilateral nephrolithiasis.
[2022-12-28 21:50] VITALS: BP 198/84; PULSE 80; RESP 15; TEMP 36.6; O2SAT 100
--- NOTE | 2022-12-28 22:12 | ED.MALEGU ---
HPI - Male Genitourinary General Chief complaint: Urogenital-Male Stated complaint: TURP S/p post op Time Seen by Provider: 12/28/22 22:00 History of Present Illness HPI Narrative: Patient had TURP done 3 days ago, with follow-up 2 days ago that was normal, earlier today family noticed that there did not seem to be much drainage in his Ervin bag other than a small clot, patient denies any abdominal pain or other complaints. He is already on antibiotics. Related Data Home Medications Medication Instructions Recorded Confirmed lisinopril 20 mg tablet 20 mg PO DAILY 10/11/22 12/25/22 omeprazole 20 mg capsule,delayed 20 mg PO DAILY 10/11/22 12/25/22 release pravastatin 20 mg tablet 20 mg PO DAILY 10/11/22 12/25/22 ascorbic acid (vitamin C) 250 mg 250 mg PO BID 12/25/22 12/25/22 tablet (Vitamin C) cholecalciferol (vitamin D3) 50 50 mcg PO BID 12/25/22 12/25/22 mcg (2,000 unit) capsule (Vitamin D3) finasteride 5 mg tablet 5 mg PO DAILY 12/25/22 12/25/22 multivitamin 1 tab-cap PO DAILY 12/25/22 12/25/22 nitrofurantoin 1 cap PO BID 12/25/22 12/25/22 monohydrate/macrocrystals 100 mg capsule potassium 99 mg tablet 99 mg PO DAILY 12/25/22 12/25/22 tamsulosin 0.4 mg PO DAILY 12/25/22 12/25/22 Allergies Allergy/AdvReac Type Severity Reaction Status Date / Time No Known Allergies Allergy Verified 12/28/22 21:53 Review of Systems Review of Systems: CONST: No fever. HEENT: No sore throat C/V: No chest pain RESP: No cough GI: No abdominal pain : Diminished urinary output + clots M/S: No joint pain. SKIN: No rash. NEURO: [No headache or focal numbness or weakness] PSYCH: [No depression] [facility] Past Medical History Medical History (Updated 12/28/22 @ 23:25 by Maria Esther Wilcox MD) Colon cancer Diabetes type 2, controlled diet controlled Hyperlipidemia Hypertension SUNITHA (obstructive sleep apnea) Family History Family History Mother Cerebrovascular accident Father Cerebrovascular accident Other DVT (deep venous thrombosis) Hypertension Social History Social History Smoking status: Never smoker Second hand tobacco smoke exposure: No Alcohol intake: never Substance use: never Substance use type: does not use Lack of Transportation: No Lack of Food: Never True Current Housing: I Have Housing Concerned About Future Housing: No Difficulty Paying Gas/Electric Bills: No Difficulty Paying for Meds: No Currently Unemployed: No Education: High School Diploma/GED Difficulty w/ Childcare or Family Care: No Living arrangements: with family Spiritual care concerns: No Exam Narrative: EXAMINATION OF ORGAN SYSTEMS/BODY AREAS: Constitutional: Vital signs per nursing GENERAL:[No acute distress, non-toxic appearing.] HEAD: Normal with no signs of head trauma. EYES: EOMI, conjunctiva normal ENT: Hearing grossly intact LUNGS: Nonlabored breathing. HEART: [Regular rate and rhythm] ABD: [Soft], [nontender to palpation] EXT: Normal range of motion SKIN: [No rashes or lesions.] NEURO: [Alert and oriented x 3. No gross focal sensory or strength deficits.] PSYCH: Normal affect Course Vital Signs Vital signs: Vital Signs Temperature 97.8 F 12/28/22 21:50 Pulse Rate 80 12/28/22 21:50 Respiratory Rate 15 12/28/22 21:50 Blood Pressure 198/84 H 12/28/22 21:50 Pulse Oximetry 100 12/28/22 21:50 Oxygen Delivery Room Air 12/28/22 21:50 Temperature 97.8 F 12/28/22 21:50 Pulse Rate 76 12/28/22 23:50 Respiratory Rate 20 12/28/22 23:50 Blood Pressure 189/101 H 12/28/22 23:50 Pulse Oximetry 97 12/28/22 23:50 Oxygen Delivery Room Air 12/28/22 21:50 MDM - Male Genitourinary MDM Narrative Medical decision making narrative: 1) Differential diagnosis: Hematuria with clogged Ervin, misplaced Ervin, other p
[2022-12-28 22:20] LABS: Basophils Absolute Auto 0.1 K/mm3 (0.0-0.1); Basophils Percent Auto 0.8 % (0.2-1.2); Eosinophils Absolute Auto 0.4 K/mm3 (0-0.3); Eosinophils Percent Auto 4.7 % (0-4.4); Hematocrit 38.4 % (42.0-52.0); Hemoglobin 12.7 g/dL (14.0-18.0); Immature Granulocyte Absolute 0.03 K/mm3 (0.00-0.031); Immature Granulocyte Percent A 0.4 % (0-0.5); Lymphocytes Absolute Auto 1.23 K/mm3 (0.9-3.2); Lymphocytes Percent Auto 16.2 % (18.3-44.2); Mean Corpuscular HGB Conc 33.1 g/dl (32-36); Mean Corpuscular Volume 90.6 fl (80-100); Mean Platelet Volume 10.5 fl (7.4-10.4); Monocytes Absolute Auto 0.9 K/mm3 (0.1-0.6); Monocytes Percent Auto 11.3 % (2.6-8.5); Neutrophils Absolute Auto 5.1 K/mm3 (1.3-6.7); Neutrophils Percent Auto 66.6 % (45.5-73.1); Platelet Count Result 169 k/mm3 (150-375); Red Blood Count 4.24 M/mm3 (4.6-6.20); Red Cell Distribution Width 13.4 % (11.5-14.5); White Blood Count 7.6 K/mm3 (4.5-10.0)
[2022-12-28 22:24] LABS: Appearance Urine Clear (Clear); Bilirubin Urine 1+ (Negative); Blood Urine 3+ (Negative); Color Urine Brown (Yellow); Glucose Urine UA Negative (Negative); Ketones Urine Trace mg/dL (Negative); Leukocyte Esterase Ur Trace LEU/UL (Negative); Nitrate Urine Negative (Negative); Protein Urine 3+ mg/dL (Negative); Specific Grav Ur 1.025 (1.001-1.035); pH Urine 6.5 (5.0-9.0)
[2022-12-28 22:30] LABS: Anion Gap 9 mmol/L (8-16); Blood Urea Nitrogen 13 mg/dL (9-20); Calcium 8.7 mg/dL (8.4-10.2); Carbon Dioxide 21 mmol/L (22-30); Chloride 106 mmol/L (98-107); Estimated CRCL calculation 59 ml/min; Estimated Glomerular Filt Rate 54; Glucose 178 mg/dL (65-110); Potassium 4.1 mmol/L (3.4-5.0); Sodium 136 mmol/L (137-145)
[2022-12-28 22:55] LABS: Add Urine Microscopic? YES; RBC Urine >100 /hpf (0-2)
[2022-12-28 23:50] VITALS: BP 189/101; PULSE 76; RESP 20; O2SAT 97
== END 2022-12-28 23:50 | disposition home or self-care (01) ==
PROVIDERS: Emergency Provider Emergency Medicine; PCP Family Medicine
DX: R31.9 Hematuria, unspecified (principal); I10 Essential (primary) hypertension; Z98.890 Other specified postprocedural states; E11.9 Type 2 diabetes mellitus without complications; E78.5 Hyperlipidemia, unspecified; G47.33 Obstructive sleep apnea (adult) (pediatric)
CPT/HCPCS: 36415; 74176; 80048; 81001; 85025; 87086; 99284